=== PATIENT | male | born 1975 | race Caucasian/White ===

== ENCOUNTER → 2021-02-07 | Outpatient (CLI) | payer MEDICAID, OTHER ==
--- NOTE | 2021-02-07 15:53 | REP ---
INDICATION: NEPHROLITHIASIS COMPARISON: None TECHNIQUE: Real time ford scale ultrasound examination using curved array transducer. FINDINGS: Bilateral kidneys are normal in contour, size, echogenicity, and reniform shape without hydronephrosis, cystic or renal mass lesion. Right kidney measures 11.8 x 6.6 x 6.6 cm without nephrolithiasis. Left kidney measures 12.2 x 6.0 x 6.0 cm and includes 8 mm nonobstructing lower pole calculus. Bladder is collapsed. IMPRESSION: 1. 8 mm nonobstructing left renal calculus. <Electronically signed by Claudio Dumont > 02/07/21 [id number]
== END ==
LOC: M RAD 12:24
PROVIDERS: ATTEND Family Medicine
DX: N20.0 Calculus of kidney (principal)

== ENCOUNTER → 2021-06-07 | Outpatient (CLI) | payer OTHER ==
[2021-06-07 18:10] LABS: BASO # 0.1 10^3/uL (0.0-0.2); BASO % 0.6 % (0.0-1.0); EOS # 0.4 10^3/uL (0.0-0.5); HEMATOCRIT 43.8 % (42.0-52.0); HEMOGLOBIN 14.4 g/dl (13.5-17.5); LYMPH # 3.6 10^3/uL (1.5-5.0); LYMPH % 35.5 % (24.0-44.0); MEAN CORPUSCULAR HEMOGLOBIN 29.6 pg (27.0-33.0); MEAN CORPUSCULAR HGB CONC 32.9 g/dl (32.0-36.5); MEAN CORPUSCULAR VOLUME 90.1 fl (80.0-96.0); MONO # 0.7 10^3/uL (0.0-0.8); MONO % 6.5 % (2.0-8.0); NEUTROPHILS # 5.3 10^3/uL (1.5-8.5); NEUTROPHILS % 52.9 % (36.0-66.0); PLATELET COUNT, AUTOMATED 277 10^3/uL (150-450); RED BLOOD COUNT 4.86 10^6/uL (4.30-6.10)
[2021-06-07 18:27] LABS: HEMOGLOBIN A1c 5.8 %
[2021-06-07 18:56] LABS: ALBUMIN 3.5 GM/DL (3.2-5.2); ALT/SGPT 29 U/L (12-78); BILIRUBIN,TOTAL 0.3 MG/DL (0.2-1.0); BLOOD UREA NITROGEN 20 MG/DL (7-18); CALCIUM LEVEL 8.8 MG/DL (8.5-10.1); CARBON DIOXIDE LEVEL 23 MEQ/L (21-32); CHLORIDE LEVEL 105 MEQ/L (98-107); CHOLESTEROL LEVEL 170 MG/DL (<200); CHOLESTEROL RISK RATIO 5.151 (<5); CREATININE FOR GFR 0.67 MG/DL (0.70-1.30); FREE T4 0.98 NG/DL (0.76-1.46); GLOMERULAR FILTRATION RATE > 60.0 (>60); GLUCOSE, FASTING 75 MG/DL (70-100); HDL CHOLESTEROL 33 MG/DL (>40); LDL CHOLESTEROL 115 MG/DL (<100); NON-HDL-C 137 MG/DL; PTH INTACT 80.7 PG/ML (18.5-88.0); SODIUM LEVEL 136 MEQ/L (136-145); TOTAL 25(OH) VITAMIN D 18.9 NG/ML (30.0-100.0); TOTAL PROTEIN 6.9 GM/DL (6.4-8.2); TRIGLYCERIDES LEVEL 110 MG/DL (<150); URIC ACID 5.9 MG/DL (3.5-7.2)
== END ==
LOC: M PLALAB 15:28
PROVIDERS: ATTEND Family Medicine
DX: E66.01 Morbid (severe) obesity due to excess calories (principal); N20.0 Calculus of kidney

== ENCOUNTER → 2021-06-23 | Outpatient (CLI) | payer OTHER ==
--- NOTE | 2021-06-23 09:38 | REP ---
INDICATION: NEPHROLITHIASIS COMPARISON: None. TECHNIQUE: CT Scan of the abdomen and pelvis was performed without intravenous contrast. Sagittal and coronal reconstruction images performed. The study is somewhat limited by motion. FINDINGS: Lung bases: There is a calcified granuloma in the left lower lobe. There is a small hiatal hernia. Liver: Grossly unremarkable. Gallbladder: Unremarkable. Spleen: Grossly unremarkable. Adrenals: Normal. Pancreas: Grossly unremarkable.. Kidneys: No hydronephrosis. There is a 12 mm intrarenal calculus in the lower pole the right kidney. There is an 8 mm intrarenal calculus in the mid left kidney, and another punctate calculus in the lower pole the left kidney.. Ureters demonstrate no dilatation or calculus. Small and large bowel: Grossly unremarkable. Free fluid: None. Abdominal aorta: No aneurysm. Adenopathy: None. Appendix: Not inflamed. Osseous structures: There is spondylolysis of L5 with the anterior grade 1 spondylolisthesis of L5 on S1, with associated moderate degenerative disc changes at L5-S1. No vertebral compression deformity is seen.. There is moderate degenerative change at the left sacroiliac joint with a bridging osteophyte anteriorly. Pelvis: No mass. No bladder calculus seen. IMPRESSION: There is a 12 mm intrarenal calculus in the lower pole the right kidney. There is an 8 mm intrarenal calculus in the mid left kidney as well as a punctate intrarenal calculus in the lower pole the left kidney. No ureteral or bladder calculus and no hydroureteronephrosis. <Electronically signed by Valente Lo > 06/23/21 [id number]
== END ==
LOC: M PLAIMG 08:50
PROVIDERS: ATTEND Family Medicine
DX: N20.0 Calculus of kidney (principal)

== ENCOUNTER → 2021-09-07 | Outpatient (REF) | payer OTHER ==
[2021-09-07 13:47] LABS: APPEARANCE, URINE CLEAR (CLEAR); BACTERIA, URINE AUTO NEGATIVE (NEGATIVE); BILIRUBIN, URINE AUTO NEGATIVE (NEGATIVE); BLOOD, URINE BLOOD NEGATIVE (NEGATIVE); COLOR, URINE YELLOW (YELLOW); GLUCOSE, URINE (UA) AUTO NEGATIVE (NEGATIVE); KETONE, URINE AUTO NEGATIVE (NEGATIVE); LEUKOCYTE ESTERASE, URINE AUTO NEGATIVE (NEGATIVE); MUCUS, URINE SMALL (NEGATIVE); NITRITE, URINE AUTO NEGATIVE (NEGATIVE); PROTEIN, URINE AUTO NEGATIVE (NEGATIVE); RBC, URINE AUTO 1 /HPF (0-3); SPECIFIC GRAVITY URINE AUTO 1.016 (1.002-1.035); SQUAMOUS EPITHELIAL CELL UR AU 0 /HPF (0-6); WBC, URINE AUTO 0 /HPF (0-3)
== END ==
LOC: M SMT 13:17
PROVIDERS: ATTEND Urology
DX: N20.0 Calculus of kidney (principal)

== ENCOUNTER → 2022-08-29 | Outpatient (CLI) | payer OTHER ==
[2022-08-29 15:37] LABS: ALBUMIN 3.8 G/DL (3.2-5.2); CHLORIDE LEVEL 103 MMOL/L (98-107); POTASSIUM SERUM 4.1 MMOL/L (3.5-5.1); SODIUM LEVEL 136 MMOL/L (136-145)
[2022-08-29 15:38] LABS: CARBON DIOXIDE LEVEL 25 MMOL/L (20-31)
[2022-08-29 15:42] LABS: CREATININE, URINE 210.9 MG/DL
[2022-08-29 15:43] LABS: BLOOD UREA NITROGEN 18 MG/DL (9-23); CALCIUM LEVEL 8.8 MG/DL (8.5-10.1); GLUCOSE, FASTING 122 MG/DL (60-100)
[2022-08-29 15:43] LABS: MALB URINE SIEMENS < 5.0 MG/DL; MAU/CREAT RATIO 2.3 MCG/MG (0.0-30.0)
[2022-08-29 15:45] LABS: GLOMERULAR FILTRATION RATE > 60.0 (>60); PHOSPHORUS LEVEL 2.3 MG/DL (2.5-4.9); PTH INTACT 64.1 PG/ML (18.5-88.0)
[2022-08-29 15:49] LABS: TOTAL 25(OH) VITAMIN D 23.7 NG/ML (20.0-100.0)
[2022-08-29 17:47] LABS: HEMOGLOBIN A1c 5.6 % (4.0-6.0)
== END ==
LOC: M PLALAB 10:24
PROVIDERS: ATTEND Family Medicine
DX: R73.01 Impaired fasting glucose (principal)

== ENCOUNTER → 2023-07-05 | Outpatient (CLI) | payer OTHER ==
[2023-07-05 17:15] LABS: BASO # 0.1 10^3/uL (0.0-0.2); BASO % 0.6 % (0.0-1.0); EOS # 0.3 10^3/uL (0.0-0.5); EOS % 2.5 % (0.0-3.0); HEMATOCRIT 46.5 % (42.0-52.0); HEMOGLOBIN 15.5 g/dl (13.5-17.5); LYMPH # 3.6 10^3/uL (1.5-5.0); MEAN CORPUSCULAR HGB CONC 33.3 g/dl (32.0-36.5); MEAN CORPUSCULAR VOLUME 90.1 fl (80.0-96.0); MONO # 0.6 10^3/uL (0.0-0.8); MONO % 6.1 % (2.0-8.0); NEUTROPHILS # 5.7 10^3/uL (1.5-8.5); NEUTROPHILS % 55.6 % (36.0-66.0); PLATELET COUNT, AUTOMATED 278 10^3/uL (150-450); RED BLOOD COUNT 5.16 10^6/uL (4.30-6.10); WHITE BLOOD COUNT 10.3 10^3/uL (4.0-10.0)
[2023-07-05 17:33] LABS: ALKALINE PHOSPHATASE 93 U/L (46-116); ALT/SGPT 39 U/L (7.0-40); AST/SGOT 24 U/L (<34); BILIRUBIN,TOTAL 0.5 MG/DL (0.3-1.2); BLOOD UREA NITROGEN 24 MG/DL (9-23); CARBON DIOXIDE LEVEL 24 MMOL/L (20-31); CHLORIDE LEVEL 106 MMOL/L (98-107); CREATININE FOR GFR 0.74 MG/DL (0.70-1.30); GLOMERULAR FILTRATION RATE > 60.0 (>60); GLUCOSE, FASTING 104 MG/DL (60-100); POTASSIUM SERUM 4.2 MMOL/L (3.5-5.1); SODIUM LEVEL 138 MMOL/L (136-145); TOTAL PROTEIN 7.2 G/DL (5.7-8.2)
[2023-07-05 17:34] LABS: PTH INTACT 95.8 PG/ML (18.5-88.0)
[2023-07-05 17:35] LABS: FERRITIN 169.9 NG/ML (10.5-307.3); TOTAL 25(OH) VITAMIN D 31.6 NG/ML (20.0-100.0)
[2023-07-05 17:38] LABS: INR 1.01
[2023-07-05 17:39] LABS: PARTIAL THROMBOPLASTIN TIME 33.7 SECONDS (24.8-34.2)
[2023-07-05 18:37] LABS: HEMOGLOBIN A1c 5.7 % (4.0-6.0)
== END ==
LOC: M PLALAB 14:40
PROVIDERS: ATTEND Family Medicine
DX: K76.0 Fatty (change of) liver, not elsewhere classified (principal); E66.01 Morbid (severe) obesity due to excess calories; E55.9 Vitamin D deficiency, unspecified; I10 Essential (primary) hypertension

== ENCOUNTER → 2023-11-29 | Outpatient (REF) | payer OTHER ==
[~2023-11-29] MED LIST: CVS1MIS79 OD; KEPP1TAB PO
== END ==
LOC: M SFHCPLAZ 16:51
PROVIDERS: ATTEND Family Medicine
DX: G40.309 Generalized idiopathic epilepsy and epileptic syndromes, not intractable, without status epilepticus (principal); R73.01 Impaired fasting glucose

== ENCOUNTER → 2024-02-19 | Outpatient (CLI) | payer OTHER | LOC: M PLAIMG 10:38 | PROVIDERS: ATTEND Family Medicine | DX: N20.0 Calculus of kidney (principal) ==

== ENCOUNTER → 2024-03-18 | Outpatient (CLI) | payer OTHER ==
[2024-03-18 14:00] LABS: HEMOGLOBIN A1c 5.7 % (4.0-6.0)
[2024-03-18 14:20] LABS: CREATININE, URINE 167.7 MG/DL; MAU/CREAT RATIO 2.3 MCG/MG (0.0-30.0)
[2024-03-18 14:22] LABS: CHOLESTEROL RISK RATIO 5.1 (<5); HDL CHOLESTEROL 34.9 MG/DL (>40); LDL CHOLESTEROL 115.7 MG/DL (<100); NON-HDL-C 143.1 MG/DL
[2024-03-18 14:23] LABS: FREE T4 1.08 NG/DL (0.89-1.76); THYROID STIMULATING HORMONE 3.399 uIU/ML (0.55-4.78)
[2024-03-19 12:03] LABS: INSULIN LEVEL 19.7 uIU/mL (<=18.4)
== END ==
LOC: M PLALAB 09:55
PROVIDERS: ATTEND Family Medicine
DX: G40.309 Generalized idiopathic epilepsy and epileptic syndromes, not intractable, without status epilepticus (principal); E66.01 Morbid (severe) obesity due to excess calories; R73.01 Impaired fasting glucose; N20.0 Calculus of kidney; Z11.1 Encounter for screening for respiratory tuberculosis

== ENCOUNTER → 2024-03-25 | Outpatient (REF) | payer OTHER ==
[2024-04-02 07:56] LABS: UR KIDNEY STONE 24HR CALCIUM 128 mg/d (100-250); UR KIDNEY STONE VOLUME 1850 ML; URINE KIDNEY STONE CALCIUM 6.9 mg/dL
[2024-04-02 07:57] LABS: UR KIDNEY STONE 24HR URIC ACID 316 mg/d (250-750); UR KIDNEY STONE CREATININE 49 mg/dL; UR KIDNEY STONE URIC ACID 17.1 mg/dL
[2024-04-02 07:58] LABS: UR KIDNEY STONE CITRIC ACID 124 mg/L
[2024-04-02 07:59] LABS: UR KIDNEY STONE 24HR CITRIC AC 229 mg/d (320-1240); UR KIDNEY STONE 24HR OXALATE 17 mg/d (16-49); UR KIDNEY STONE OXALATE 9 mg/L
[2024-04-02 08:00] LABS: UR KIDNEY STONE 24HR CREATININ 906 mg/d (1000-2500)
[2024-04-02 08:01] LABS: UR KIDNEY STONE INTERP See Separate Report
== END ==
LOC: M SFHCPLAZ 14:58
PROVIDERS: ATTEND Family Medicine
DX: N20.0 Calculus of kidney (principal)

== ENCOUNTER → 2024-06-09 | Outpatient (CLI) | payer OTHER ==
[2024-06-09 15:29] LABS: HEMATOCRIT 45.9 % (42.0-52.0); HEMOGLOBIN 15.2 g/dl (13.5-17.5); MEAN CORPUSCULAR HEMOGLOBIN 29.7 pg (27.0-33.0); MEAN CORPUSCULAR HGB CONC 33.1 g/dl (32.0-36.5); MEAN CORPUSCULAR VOLUME 89.6 fl (80.0-96.0); PLATELET COUNT, AUTOMATED 315 10^3/uL (150-450); RED BLOOD COUNT 5.12 10^6/uL (4.30-6.10); WHITE BLOOD COUNT 8.2 10^3/uL (4.0-10.0)
[2024-06-09 15:56] LABS: ALBUMIN 3.8 G/DL (3.2-5.2); ALKALINE PHOSPHATASE 91 U/L (46-116); ALT/SGPT 36 U/L (7.0-40); AST/SGOT 18 U/L (<34); BILIRUBIN,TOTAL 0.5 MG/DL (0.3-1.2); BLOOD UREA NITROGEN 17 MG/DL (9-23); CALCIUM LEVEL 9.5 MG/DL (8.5-10.1); CARBON DIOXIDE LEVEL 24 MMOL/L (20-31); CHLORIDE LEVEL 108 MMOL/L (98-107); CREATININE FOR GFR 0.85 MG/DL (0.70-1.30); GLOMERULAR FILTRATION RATE > 60.0 (>60); GLUCOSE, FASTING 94 MG/DL (60-100); POTASSIUM SERUM 4.3 MMOL/L (3.5-5.1); SODIUM LEVEL 137 MMOL/L (136-145); TOTAL PROTEIN 7.1 G/DL (5.7-8.2)
== END ==
LOC: M PLALAB 11:52
PROVIDERS: ATTEND Urology
DX: N20.0 Calculus of kidney (principal)

== ENCOUNTER → 2024-06-10 | Outpatient (REF) | payer OTHER ==
[~2024-06-10] MED LIST changes: +D 50CAP2 PO; +LEVE500T5 PO; +POTA10808 PO
[2024-06-10 16:10] LABS: APPEARANCE, URINE CLEAR (CLEAR); BACTERIA, URINE AUTO NEGATIVE (NEGATIVE); BILIRUBIN, URINE AUTO NEGATIVE (NEGATIVE); BLOOD, URINE BLOOD 1+ (NEGATIVE); COLOR, URINE YELLOW (YELLOW); GLUCOSE, URINE (UA) AUTO NEGATIVE (NEGATIVE); KETONE, URINE AUTO NEGATIVE (NEGATIVE); LEUKOCYTE ESTERASE, URINE AUTO NEGATIVE (NEGATIVE); MUCUS, URINE SMALL (NEGATIVE); NITRITE, URINE AUTO NEGATIVE (NEGATIVE); PROTEIN, URINE AUTO NEGATIVE (NEGATIVE); RBC, URINE AUTO 0 /HPF (0-3); SPECIFIC GRAVITY URINE AUTO 1.009 (1.002-1.035); SQUAMOUS EPITHELIAL CELL UR AU 0 /HPF (0-6); UROBILINOGEN, URINE AUTO 0.2 mg/dL (0.0-2.0); WBC, URINE AUTO 0 /HPF (0-3)
== END ==
LOC: M SFHCPLAZ 11:45
PROVIDERS: ATTEND Family Medicine
DX: G40.309 Generalized idiopathic epilepsy and epileptic syndromes, not intractable, without status epilepticus (principal); R73.01 Impaired fasting glucose; E66.01 Morbid (severe) obesity due to excess calories

== ENCOUNTER 2024-07-03 07:42 | Day surgery (SDC) | payer OTHER ==
[~2024-07-03] VITALS: Ht 182.9 cm; Wt 156.0 kg
[2024-07-03] MEDS ORDERED: LR 1,000 ML IV SCH (07:55)
[2024-07-03] MEDS ORDERED: ceFAZolin SOD 3 GM in IV 1 EA IV ONE (08:25)
[2024-07-03] MEDS ORDERED: MIDAZOLAM INJ 2MG/2ML VIAL As Ordered ONE (09:23)
[2024-07-03] MEDS ORDERED: propofoL 200 MG/20 ML VIAL As Ordered ONE (09:23)
[2024-07-03] MEDS ORDERED: LIDOCAINE 2% 100MG/5ML SDV (FOR ANES.) As Ordered ONE (09:23)
[2024-07-03] MEDS ORDERED: ONDANSETRON 4MG 2ML VIAL As Ordered ONE (09:23)
[2024-07-03] MEDS: ceFAZolin SOD 1 GM in D5W MINI-BAG PLUS 50 ML IV ONE (09:50)
[2024-07-03] MEDS: ceFAZolin SOD 2 GM in IV 1 EA IV ONE (09:50)
[2024-07-03] MEDS ORDERED: MACR100C43 PO (10:18)
[2024-07-03] MEDS ORDERED: OXYB5TAB14 PO (10:18)
[2024-07-03] MEDS ORDERED: PYRI1TAB5 PO (10:18)
[2024-07-03 11:01] VITALS: BP 148/89; TEMP 97.9; O2SAT 95
== END 2024-07-03 11:18 | disposition home or self-care (01) ==
LOC: M SDC 07:42
PROVIDERS: ATTEND Urology
DX: N20.0 Calculus of kidney (principal); I10 Essential (primary) hypertension; E78.5 Hyperlipidemia, unspecified; K76.0 Fatty (change of) liver, not elsewhere classified; Z79.899 Other long term (current) drug therapy
CPT/HCPCS: 50590; 52332; 74018; C2617; J0690; J2405

== ENCOUNTER → 2024-07-22 | Outpatient (CLI) | payer OTHER ==
[~2024-07-22] MED LIST changes: +MACR100C43 PO; +OXYB5TAB14 PO; +PYRI1TAB5 PO
== END ==
LOC: M PLALAB 13:23 → M PLAIMG 13:23
PROVIDERS: ATTEND Urology
DX: N20.0 Calculus of kidney (principal)

== ENCOUNTER → 2024-08-07 | Outpatient (CLI) | payer OTHER ==
[2024-08-07 17:37] LABS: HEMATOCRIT 43.9 % (42.0-52.0); HEMOGLOBIN 14.3 g/dl (13.5-17.5); MEAN CORPUSCULAR HEMOGLOBIN 29.6 pg (27.0-33.0); MEAN CORPUSCULAR HGB CONC 32.6 g/dl (32.0-36.5); MEAN CORPUSCULAR VOLUME 90.9 fl (80.0-96.0); PLATELET COUNT, AUTOMATED 271 10^3/uL (150-450); RED BLOOD COUNT 4.83 10^6/uL (4.30-6.10); WHITE BLOOD COUNT 10.3 10^3/uL (4.0-10.0)
[2024-08-07 18:09] LABS: ALBUMIN 3.7 G/DL (3.2-5.2); ALKALINE PHOSPHATASE 87 U/L (40-129); ALT/SGPT 32 U/L (7.0-40); AST/SGOT 19 U/L (<34); BILIRUBIN,TOTAL 0.5 MG/DL (0.3-1.2); BLOOD UREA NITROGEN 21 MG/DL (9-23); CALCIUM LEVEL 9.6 MG/DL (8.5-10.1); CARBON DIOXIDE LEVEL 28 MMOL/L (20-31); CHLORIDE LEVEL 104 MMOL/L (98-107); CREATININE FOR GFR 0.89 MG/DL (0.70-1.30); GLOMERULAR FILTRATION RATE > 60.0 (>60); GLUCOSE, FASTING 81 MG/DL (60-100); POTASSIUM SERUM 3.9 MMOL/L (3.5-5.1); SODIUM LEVEL 136 MMOL/L (136-145); TOTAL PROTEIN 7.3 G/DL (5.7-8.2)
== END ==
LOC: M PLALAB 15:17
PROVIDERS: ATTEND Urology
DX: Z96.0 Presence of urogenital implants (principal)

== ENCOUNTER 2024-08-14 09:51 | Day surgery (SDC) | payer OTHER ==
[~2024-08-14] VITALS: Ht 185.4 cm; Wt 158.0 kg
[2024-08-14] MEDS: NS 250 ML IV SCH (11:07)
[2024-08-14] MEDS ORDERED: LIDOCAINE 2% 100MG/5ML SDV (FOR ANES.) As Ordered ONE (11:31)
[2024-08-14] MEDS ORDERED: MIDAZOLAM INJ 2MG/2ML VIAL As Ordered ONE (11:31)
[2024-08-14] MEDS ORDERED: propofoL 200 MG/20 ML VIAL As Ordered ONE (11:31)
[2024-08-14] MEDS ORDERED: ONDANSETRON 4MG 2ML VIAL As Ordered ONE (11:31)
[2024-08-14] MEDS: ceFAZolin SOD 1 GM in DEXTROSE 5% (D5W) ADV/MINI-BAG 50 ML IV ONE (12:25)
[2024-08-14] MEDS: ceFAZolin SOD 2 GM in IV 1 EA IV ONE (12:25)
[2024-08-14] MEDS ORDERED: fentaNYL 100 MCG/2 ML INJECTION As Ordered ONE (12:30)
[2024-08-14] MEDS ORDERED: oxyCODONE 5MG TAB PO PRN (13:00)
[2024-08-14] MEDS ORDERED: ONDANSETRON 4MG 2ML VIAL IV PRN (13:00)
[2024-08-14] MEDS ORDERED: HYDROMORPHONE HCL 0.5 MG/ 0.5 ML SYRINGE IV PRN (13:00)
[2024-08-14] MEDS ORDERED: fentaNYL 100 MCG/2 ML INJECTION IV PRN (13:00)
[2024-08-14] MEDS ORDERED: NS 250 ML IV SCH (13:00)
[2024-08-14] MEDS ORDERED: hydrALAZINE 20MG/ML 1ML VIAL As Ordered ONE (13:19)
[2024-08-14] MEDS ORDERED: hydrALAZINE 20MG/ML 1ML VIAL IV PRN (13:20)
[2024-08-14 14:15] VITALS: BP 147/88; TEMP 97.7; O2SAT 99
== END 2024-08-14 14:22 | disposition home or self-care (01) ==
LOC: M SDC 09:51
PROVIDERS: ATTEND Urology
DX: N20.0 Calculus of kidney (principal); I10 Essential (primary) hypertension; E78.5 Hyperlipidemia, unspecified; K76.0 Fatty (change of) liver, not elsewhere classified; F79 Unspecified intellectual disabilities; G40.909 Epilepsy, unspecified, not intractable, without status epilepticus; Z79.899 Other long term (current) drug therapy
CPT/HCPCS: 50590; 52332; C2617; J0690; J1100; J2250; J2405; J3010

== ENCOUNTER → 2024-09-03 | Outpatient (CLI) | payer OTHER ==
[~2024-09-03] MED LIST changes: -POTA10808 PO; +POTA10809 PO
== END ==
LOC: M PLAIMG 10:09
PROVIDERS: ATTEND Urology
DX: N20.0 Calculus of kidney (principal)